=== PATIENT | female | born 1965 | race Caucasian/White ===

== ENCOUNTER 2023-01-30 15:57 | Outpatient (CLI) | payer BC, SELFPAY | END 2023-01-30 15:58 | disposition home or self-care (01) | LOC: LONREF 15:58 | PROVIDERS: PCP Family Medicine; Visit Provider Family Medicine | DX: Z00.00 Encounter for general adult medical examination without abnormal findings (principal); Z13.1 Encounter for screening for diabetes mellitus; I10 Essential (primary) hypertension; E05.90 Thyrotoxicosis, unspecified without thyrotoxic crisis or storm; K76.0 Fatty (change of) liver, not elsewhere classified | CPT/HCPCS: 80048 ==

== ENCOUNTER 2023-04-10 18:07 | Outpatient (CLI) | payer BC, SELFPAY ==
--- NOTE | 2023-04-10 18:30 | CRLHL7_ITS ---
For Patients: As a result of the Cures Act, medical imaging exams and procedure reports are released immediately into your electronic medical record. You may view this report before your referring provider. If you have questions, please contact your health care provider. BILATERAL SCREENING MAMMOGRAM WITH COMPUTER-AIDED DETECTION AND TOMOSYNTHESIS TECHNIQUE: CC and MLO views were obtained. These mammographic images have been obtained using full-field digital technique. These mammographic images were interpreted with the benefit of computer-aided detection. Breast tomosynthesis was used in this interpretation. COMPARISON FILM: 04/22/21, 03/11/20, 03/11/19. FINDINGS: There are scattered areas of fibroglandular density. IMPRESSION: There is no radiographic evidence for malignancy. ASSESSMENT: BI-RADS Category 1: Negative RECOMMENDATION: Routine screening mammogram in 1 year. A lay language report of this examination will be provided to the patient. PANCHO DOSS M.D. Diagnostic Radiologist [email or web address] Transcribed: 04/11/2023, 2:[address]/Dictated by: Pancho Doss MD @ 04/11/2023 8:43:00 AM (Electronically Signed)
== END 2023-04-10 18:08 | disposition home or self-care (01) ==
LOC: MAMMO 18:08
PROVIDERS: PCP Family Medicine; Visit Provider Family Medicine
DX: Z12.31 Encounter for screening mammogram for malignant neoplasm of breast (principal)
CPT/HCPCS: 77063; 77067

== ENCOUNTER 2023-08-10 10:50 | Outpatient (CLI) | payer BC, SELFPAY | END 2023-08-10 10:51 | disposition home or self-care (01) | PROVIDERS: PCP Family Medicine; Visit Provider Obstetrics & Gynecology | DX: N95.0 Postmenopausal bleeding (principal) | CPT/HCPCS: 83001 ==

== ENCOUNTER 2024-02-26 06:45 | Outpatient (CLI) | payer BC, SELFPAY | END 2024-02-26 06:46 | disposition home or self-care (01) | PROVIDERS: PCP Family Medicine; Visit Provider Family Medicine | DX: Z00.00 Encounter for general adult medical examination without abnormal findings (principal); I10 Essential (primary) hypertension; E05.90 Thyrotoxicosis, unspecified without thyrotoxic crisis or storm; Z11.59 Encounter for screening for other viral diseases; Z13.6 Encounter for screening for cardiovascular disorders; Z13.1 Encounter for screening for diabetes mellitus | CPT/HCPCS: 80053; 80061; 82043; 82570; 86803 ==

== ENCOUNTER 2024-03-26 19:31 | Outpatient (CLI) | payer BC, SELFPAY ==
--- NOTE | 2024-04-08 12:52 | W.PM.SLEEP ---
Sleep Study Details Details Interpreting Provider: Osman Date of Sleep Study: 03/26/24 Sleep Study Details: STUDY TYPE:? Home unattended ? BMI:? 46.8 ORDERING PROVIDER:Renate العراقي INDICATION:? Concerned about sleep apnea ? SLEEP SUMMARY:? 489 minutes RESPIRATORY SUMMARY:? AHI 19.9, supine 20.6, right lateral 5.8 Low oxygen 84 13.7% of study oxygen less than 90% Snoring 76.5% PERIODIC LIMB MOVEMENTS OF SLEEP:? Not recorded CARDIAC:? Range 54-102, mean 67.6 IMPRESSION:? Moderate obstructive sleep apnea with supine position dependency RECOMMENDATION: Treatment options include AutoSet CPAP, dental appliance and/or airway expansion surgery. Weight loss is also recommended.
== END 2024-03-26 19:32 | disposition home or self-care (01) ==
LOC: SLEEP 19:37
PROVIDERS: PCP Family Medicine; Visit Provider Family Medicine
DX: G47.33 Obstructive sleep apnea (adult) (pediatric) (principal)
CPT/HCPCS: 95806

== ENCOUNTER 2025-03-26 15:08 | Outpatient (CLI) | payer BC, SELFPAY | END 2025-03-26 15:09 | disposition home or self-care (01) | PROVIDERS: PCP Family Medicine; Visit Provider Family Medicine | DX: E05.90 Thyrotoxicosis, unspecified without thyrotoxic crisis or storm (principal); N95.1 Menopausal and female climacteric states; I10 Essential (primary) hypertension; E88.810 Metabolic syndrome | CPT/HCPCS: 80053; 80061; 82043; 82570; 83001; 84439; 84443 ==

== ENCOUNTER 2025-08-13 15:13 | Outpatient (CLI) | payer BC, SELFPAY ==
--- NOTE | 2025-08-13 15:20 | CRLHL7_ITS ---
For Patients: As a result of the Century Cures Act, medical imaging exams and procedure reports are released immediately into your electronic medical record. You may view this report before your referring provider. If you have questions, please contact your health care provider. INDICATION: BILATERAL SCREENING MAMMOGRAM, ASYMPTOMATIC 60 Y/O FEMALE COMPARISON: 04/10/2023, 04/22/2021, 03/11/2020 TECHNIQUE: Digital mammogram in CC and MLO projections including computer-aided detection (CAD) and tomosynthesis. BREAST COMPOSITION: The breasts are almost entirely fatty. FINDINGS: No suspicious findings. ASSESSMENT: BI-RADS 1 Negative RECOMMENDATION: Annual screening mammogram. A lay language report of this examination will be provided to the patient. Dictated by: Pancho Roy MD @ 08/14/2025 09:30:31 (Electronically Signed)
== END 2025-08-13 15:14 | disposition home or self-care (01) ==
LOC: MAMMO 15:14
PROVIDERS: PCP Family Medicine; Visit Provider Family Medicine
DX: Z12.31 Encounter for screening mammogram for malignant neoplasm of breast (principal)
CPT/HCPCS: 77063; 77067